=== PATIENT | male | born 1955 | race Caucasian/White ===

== ENCOUNTER 2018-07-26 09:57 | Observation (INO) ==
[2018-07-26] MEDS ORDERED: ONDANSETRON INJ 2 MG/ML 2 ML VIAL IV STA (10:04)
[2018-07-26] MEDS ORDERED: KETOROLAC TROMETHAMINE 15 MG/ML VIAL IV STA (10:04)
[2018-07-26] MEDS ORDERED: DEXAMETHASONE SOD INJ 4 MG/ML VIAL IV STA (10:04)
[2018-07-26] MEDS ORDERED: SODIUM CHLORIDE 0.9% 1000ML 1,000 ML IV SCH (10:15)
[2018-07-26] MEDS: MoRPHine SULFATE 4 MG/ML 1 ML CARP\\VIAL IV PRN ×2 (10:18→12:04)
[2018-07-26 10:37] LABS: Basophils # (auto) 0.01 K/uL (0-0.2); Basophils % (auto) 0.1 %; Eosinophils # (auto) 0.01 K/uL (0-0.5); Eosinophils % (auto) 0.1 %; Hemoglobin 14.6 g/dL (14.0-18.0); Immature Granulocytes # (auto) 0.01 K/uL (0.00-0.02); Immature Granulocytes % (auto) 0.1 %; Lymphocytes # (auto) 0.53 K/uL (1.2-3.4); Lymphocytes % (auto) 7.8 %; Mean Corpuscular Hgb Conc 34.8 g/dL (32-36); Mean Corpuscular Volume 94.8 fL (80-100); Mean Platelet Volume 10.3 fL (7.4-10.4); Monocytes # (auto) 0.24 K/uL (0.11-0.59); Monocytes % (auto) 3.5 %; Neutrophils # (auto) 5.98 K/uL (1.4-6.5); Neutrophils % (auto) 88.4 %; Platelet Count 226 K/uL (130-400); RDW Coefficient of Variation 12.6 % (11.5-14.5); RDW Standard Deviation 44.1 fL (36.4-46.3); Red Blood Count 4.43 M/uL (4.7-6.1); White Blood Count 6.78 K/uL (4.8-10.8)
[2018-07-26 10:56] LABS: Albumin Level 4.3 gm/dl (3.4-5.0); BUN Creatinine Ratio 21.9 (10-20); Est GFR (African American) 91.5; Potassium 3.9 mmol/L (3.5-5.1)
[2018-07-26 10:59] LABS: Albumin Globulin Ratio 1.2 (0.9-2); Bilirubin,Total 0.6 mg/dl (0.2-1); Globulin 3.5 gm/dl (2.5-4.0); Total Protein 7.8 gm/dl (6.4-8.2)
[2018-07-26 11:07] LABS: Appearance Urine Cloudy (Clear); Bacteria Urine Automated Negative (Negative); Bilirubin Urine Negative (Negative); Blood Urine Negative (Negative); Color Urine Yellow; Epithelial Cell Urine Auto 0-5 /lpf (0-5); Glucose Urine UA Negative (Negative); Ketones Urine 1+ (Negative); Leukocyte Esterase Urine Negative (Negative); Nitrite Urine Negative (Negative); Protein Urine Negative (Negative); RBC Urine Automated 0-4 /hpf (0-4); Specific Gravity Urine 1.022 (1.000-1.030); Urobilinogen Urine Negative (Negative); WBC Urine Automated 0 /hpf (0-5)
--- NOTE | 2018-07-26 12:06 | Emergency Department Note ---
Entered by Krupa Licea acting as a scribe for Lenny Vera DO History of Present Illness General Chief complaint: Back Injury/Pain Source: patient and EMS History of Present Illness Provider complaint: back pain Onset (ago): month(s) 2 Location: back Radiation: extremity (right leg) Quality: + other (pain) Associated symptoms: + denies other symptoms (denies abdominal pain); no chest pain, no nausea/vomiting and no weakness The patient is a 63 year old male who presents to the Emergency Room with complaints of back pain over the last 2 months. The patient states that Dr. Lowe ordered the MRI for him. The patient states that the pain down his right leg is new and states that this started last month. He denies having fevers, nausea, vomiting, chest pain, abdominal pain, and weakness. The patient states that rubbing his leg and walking helps to alleviate his pain. He states that he has been taking Tramadol and Prednisone which have been helping his leg. The patient denies other medical problems. He states that he had an MRI done last week and was scheduled to meet with Dr. Lowe today to go over it. Per EMS, the patient is having lower back pain that radiates into his right leg. Home Medications Home Medications Medication Instructions Recorded Confirmed Type albuterol sulfate [ProAir HFA] 2 puff INHALATION Q6H PRN 07/26/18 07/26/18 History methylprednisolone 4 mg PO DIRECTED 07/26/18 07/26/18 History tramadol 50 mg PO Q6 PRN 07/26/18 07/26/18 History Allergies Allergy/AdvReac Type Severity Reaction Status Date / Time No Known Allergies Allergy Verified 07/08/18 19:25 Past Med/Surg History Medical History Asthma (Chronic) Sciatica (Chronic) Surgical History Hx of tonsillectomy Family History Other No significant family history Social History Preferred Language: German Communication Ability: Effective Lead Miner Required: No Beliefs That Will Affect Care: None Current Living Situation: Spouse Other Information That Helps Us Care for You: No Feels Safe at Home: Yes Safety Concerns: Feels Safe At This Time Smoking Status: Never smoker Hx Alcohol Use: No Hx Substance Use: No Review of Systems See HPI for pertinent positives & negatives. and A total of 10 systems reviewed and were otherwise negative Physical Exam Vital Signs Vital Signs - 24 hr 07/26/18 10:05 07/26/18 10:37 07/26/18 10:47 Temperature 36.8 C Temperature Source Oral Sepsis Recent Fever Within 48 Hours No Sepsis Action Taken by Nursing No Action Required Pulse Rate 116 H Pulse Rate [Finger] Pulse Rate [Left] 95 H Pulse Rhythm [Finger] Pulse Rhythm [Left] Regular Pulse Strength [Finger] Pulse Strength [Left] Respiratory Rate 20 20 Respiratory Effort / Characteristics Non-Labored Respiratory Depth Normal Normal Respiratory Pattern Blood Pressure 168/113 H Blood Pressure [Left Arm] 134/94 Blood Pressure Mean 131 Blood Pressure Mean [Left Arm] 107 Blood Pressure Position [Left Arm] Pulse Oximetry 99 96 96 Oxygen Delivery Method Room Air Room Air Room Air 07/26/18 12:04 07/26/18 13:21 07/26/18 13:45 Temperature 36.7 C Temperature Source Oral Sepsis Recent Fever Within 48 Hours Sepsis Action Taken by Nursing Pulse Rate Pulse Rate [Finger] 91 H Pulse Rate [Left] 88 98 H Pulse Rhythm [Finger] Regular Pulse Rhythm [Left] Regular Regular Pulse Strength [Finger] Normal Pulse Strength [Left] Normal Normal Respiratory Rate 18 18 16 Respiratory Effort / Characteristics Non-Labored Spontaneous Non-Labored Spontaneous Non-Labored Spontaneous Respiratory Depth Normal Normal Normal Respiratory Pattern Regular Regular Blood Pressure Blood Pressure [Left Arm] 156/85 H 173/96 H 151/83 H Blood Pressure Mean Blood Pressure Mean [Left Arm] 108 121 105 Blood Pressure Position [Left Arm] Standing Standing Standing Pulse Oximetry 98 98 97 Oxygen Delivery Method Room Air Room Air Room Air 07/26/18 15:03 Temperature 36.4 C L Temperature Source Oral Sepsis Recent Fever Within 48 Hours Sepsis Action Taken by Nursing Pulse Rate Pulse Rate [Finger] 67 Pulse Rate [Left] Pulse Rhythm [Finger] Pulse Rhythm [Left] Pulse Strength [Finger] Pulse Strength [Left] Respiratory Rate 18 Respiratory Effort / Characteristics Respiratory Depth Respiratory Pattern Blood Pressure Blood Pressure [Left Arm] 151/86 H Blood Pressure Mean Blood Pressure Mean [Left Arm] 107 Blood Pressure Position [Left Arm] Standing Pulse Oximetry 94 Oxygen Delivery Method Room Air GENERAL: Patient is awake, alert .Patient is showing no signs of anxiety EYES: The conjunctivae are clear. The pupils are round and reactive. EARS, NOSE, MOUTH AND THROAT: The nose is without any evidence of any deformity. Mucous membranes are moist.Tongue is midline NECK: The neck is nontender and supple. RESPIRATORY: Normal respiratory effort is noted. There is no evidence of whe ezing rhonchi or rales to auscultation. CARDIOVASCULAR: Regular rate and rhythm noted. There no murmurs rubs or gallops normal S1 normal S2 GASTROINTESTINAL: The abdomen is soft. Bowel sounds are present in all quadrants. Abdomen is nontender. BACK: Low lumbar spine tenderness to palpation, right greater than left. MUSCULOSKELETAL/EXTREMITIES: There is no evidence of gross deformity. Full range of motion is noted in the hips and shoulders. SKIN: There is no obvious evidence of any rash. There are no petechiae, pallor or cyanosis noted. NEUROLOGIC: Patient is awake alert and oriented x3. Right patellar reflexes 1+, left is 2+. Achilles reflexes are 1+ and symmetric. Great toe raise is sym metric. Course 0957: The patient was evaluated in room C5, and a complete history and physical examination were performed. 1123: I discussed the patient's case with Dr. Lowe who said to admit the patient to Medicine. 1125: I updated the patient who verbalized agreement and understanding of the treatment plan. 1153: I discussed the patient's case with Patrizia Peters who will evaluate the patient for further management. Consultations Consultation #1: Dr. Lowe Time: 11:23 Consultation #2: Patrizia Peters Time: 11:53 Administered Medications Hydromorphone HCl (Dilaudid) 0.5 mg IV Q3H PRN PRN Reason: Pain Stop: 08/09/18 12:54 Last Admin: 07/26/18 16:26 Dose: 0.5 mg Documented by: [id number] Methylprednisolone 20 mg/ (Syringe) 0.32 mls @ 1.5 mls/min IV Q6 YESSI Stop: 08/25/18 17:29 Last Admin: 07/26/18 17:49 Dose: 1.5 mls/min Documented by: [id number] Lactated Ringer's (Lr) 1,000 mls @ 80 mls/hr IV .[id number] YESSI Stop: 08/25/18 17:14 Last Admin: 07/26/18 17:48 Dose: 80 mls/hr Documented by: [id number] Ketorolac Tromethamine (Toradol) 30 mg IV Q6 YESSI Stop: 07/31/18 16:59 Last Admin: 07/26/18 17:49 Dose: 30 mg Documented by: [id number] Morphine Sulfate (Morphine Sulfate) 4 mg IV Q15M PRN PRN Reason: Pain Stop: 08/09/18 10:03 Last Admin: 07/26/18 12:04 Dose: 4 mg Documented by: [id number] Admin: 07/26/18 10:18 Dose: 4 mg Documented by: [id number] Tramadol HCl (Ultram) 50 mg PO Q6H PRN PRN Reason: Pain Stop: 08/25/18 14:03 Last Admin: 07/26/18 17:08 Dose: 50 mg Documented by: [id number] Discontinued Medications Dexamethasone (Decadron) 10 mg IV NOW STA Stop: 07/26/18 10:05 Last Admin: 07/26/18 10:18 Dose: 10 mg Documented by: [id number] Sodium Chloride (Nss 1000ml) 1,000 mls @ 999 mls/hr IV .[id number] YESSI Stop: 07/26/18 11:15 Last Infusion: 07/26/18 11:20 Dose: 0 mls/hr Documented by: [id number] Admin: 07/26/18 10:19 Dose: 999 mls/hr Documented by: [id number] Ketorolac Tromethamine (Toradol) 15 mg IV NOW STA Stop: 07/26/18 10:05 Last Admin: 07/26/18 10:19 Dose: 15 mg Documented by: [id number] Ondansetron HCl (Zofran) 4 mg IV NOW STA Stop: 07/26/18 10:05 Last Admin: 07/26/18 10:18 Dose: 4 mg Documented by: [id number] Medical Decision Making Differential Diagnosis Differential diagnosis: Etiologies such as muscular strain, fracture, metastatic disease, disc herniation, sciatica, epidural abscess, vertebral osteomyelitis, discitis, spinal epidural hematoma, cord compression, cauda equina/conus medullaris syndrome, aortic disease, infection, shingles, renal colic, gastrointestinal, acute exacerbation of chronic back pain, as well as others were entertained. Medical Records Attestation: I reviewed the patient's medical records. Home Medications Current Medication List: was personally reviewed by me Laboratory Data Attestation: I reviewed the patient's lab results. Result diagrams: 07/26/18 10:22 07/26/18 10:22 Lab Results 07/26/18 07/26/18 07/26/18 Range/Units 10:22 10:22 10:24 WBC 6.78 (4.8-10.8) K/uL RBC 4.43 L (4.7-6.1) M/uL Hgb 14.6 (14.0-18.0) g/dL Hct 42.0 (42-52) % MCV 94.8 (80-100) fL MCH 33.0 (25-34) pg MCHC 34.8 (32-36) g/dL RDW Std Deviation 44.1 (36.4-46.3) fL RDW Coeff of [place] 12.6 (11.5-14.5) % Plt Count 226 (130-400) K/uL MPV 10.3 (7.4-10.4) fL Immature Gran % (Auto) 0.1 % Neut % (Auto) 88.4 % Lymph % (Auto) 7.8 % [place] % (Auto) 3.5 % Eos % (Auto) 0.1 % Baso % (Auto) 0.1 % Immature Gran # (Auto) 0.01 (0.00-0.02) K/uL Neut # (Auto) 5.98 (1.4-6.5) K/uL Lymph # (Auto) 0.53 L (1.2-3.4) K/uL [place] # (Auto) 0.24 (0.11-0.59) K/uL Eos # (Auto) 0.01 (0-0.5) K/uL Baso # (Auto) 0.01 (0-0.2) K/uL PT 11.1 (9.0-12.0) Seconds INR 1.1 (0.9-1.1) Sodium 137 (136-145) mmol/L Potassium 3.9 (3.5-5.1) mmol/L Chloride 104 (98-107) mmol/L Carbon Dioxide 24 (21-32) mmol/L Anion Gap 9.0 (3-11) BUN 22 H (7-18) mg/dl Creatinine 1.02 (0.6-1.4) mg/dl Est Cr Clr Drug Dosing 77.0 ml/min Est GFR ( Amer) 91.5 Est GFR (Non-Af Amer) 79.0 BUN/Creatinine Ratio 21.9 H (10-20) Glucose 132 H (70-99) mg/dl Calcium 9.0 (8.5-10.1) mg/dl Total Bilirubin 0.6 (0.2-1) mg/dl AST 21 (15-37) U/L ALT 37 (12-78) U/L Alkaline Phosphatase 62 (45-117) U/L Total Protein 7.8 (6.4-8.2) gm/dl Albumin 4.3 (3.4-5.0) gm/dl Globulin 3.5 (2.5-4.0) gm/dl Albumin/Globulin Ratio 1.2 (0.9-2) Lipase 103 (73-393) U/L Urine Color Urine Appearance (Clear) Urine pH (4.5-7.5) Ur Specific [place] (1.000-1.030) Urine Protein (Negative) Urine Glucose (UA) (Negative) Urine Ketones (Negative) Urine Blood (Negative) Urine Nitrite (Negative) Urine Bilirubin (Negative) Urine Urobilinogen (Negative) Ur Leukocyte Esterase (Negative) Urine WBC (Auto) (0-5) /hpf Urine RBC (Auto) (0-4) /hpf U Hyaline Cast (Auto) (0-5) /lpf U Epithel Cells (Auto) (0-5) /lpf Urine Bacteria (Auto) (Negative) 07/26/18 Range/Units 11:00 WBC (4.8-10.8) K/uL RBC (4.7-6.1) M/uL Hgb (14.0-18.0) g/dL Hct (42-52) % MCV (80-100) fL MCH (25-34) pg MCHC (32-36) g/dL RDW Std Deviation (36.4-46.3) fL RDW Coeff of [place] (11.5-14.5) % Plt Count (130-400) K/uL MPV (7.4-10.4) fL Immature Gran % (Auto) % Neut % (Auto) % Lymph % (Auto) % [place] % (Auto) % Eos % (Auto) % Baso % (Auto) % Immature Gran # (Auto) (0.00-0.02) K/uL Neut # (Auto) (1.4-6.5) K/uL Lymph # (Auto) (1.2-3.4) K/uL [place] # (Auto) (0.11-0.59) K/uL Eos # (Auto) (0-0.5) K/uL Baso # (Auto) (0-0.2) K/uL PT (9.0-12.0) Seconds INR (0.9-1.1) Sodium (136-145) mmol/L Potassium (3.5-5.1) mmol/L Chloride (98-107) mmol/L Carbon Dioxide (21-32) mmol/L Anion Gap (3-11) BUN (7-18) mg/dl Creatinine (0.6-1.4) mg/dl Est Cr Clr Drug Dosing ml/min Est GFR ( Amer) Est GFR (Non-Af Amer) BUN/Creatinine Ratio (10-20) Glucose (70-99) mg/dl Calcium (8.5-10.1) mg/dl Total Bilirubin (0.2-1) mg/dl AST (15-37) U/L ALT (12-78) U/L Alkaline Phosphatase (45-117) U/L Total Protein (6.4-8.2) gm/dl Albumin (3.4-5.0) gm/dl Globulin (2.5-4.0) gm/dl Albumin/Globulin Ratio (0.9-2) Lipase (73-393) U/L Urine Color Yellow Urine Appearance Cloudy H (Clear) Urine pH 7.0 (4.5-7.5) Ur Specific [place] 1.022 (1.000-1.030) Urine Protein Negative (Negative) Urine Glucose (UA) Negative (Negative) Urine Ketones 1+ H (Negative) Urine Blood Negative (Negative) Urine Nitrite Negative (Negative) Urine Bilirubin Negative (Negative) Urine Urobilinogen Negative (Negative) Ur Leukocyte Esterase Negative (Negative) Urine WBC (Auto) 0 (0-5) /hpf Urine RBC (Auto) 0-4 (0-4) /hpf U Hyaline Cast (Auto) 1-5 (0-5) /lpf U Epithel Cells (Auto) 0-5 (0-5) /lpf Urine Bacteria (Auto) Negative (Negative) Blood Pressure Blood Pressure Findings: Normal blood pressure MDM Narrative The patient is a 63-year-old male who presented to the emergency department for back pain. The patient has had ongoing back pain recently. He was seen by orthopedic surgery. The patient had an MRI recently. He was not aware of the MRI report and had an appointment with orthopedics today to go over his MRI as well as schedule further management. The patient's pain became very severe over the last 48 hours. He is having difficulty sitting. He has very significant pain which radiates to his right lower extremity. The patient has been having difficulty ambulating and to the point where he cannot ambulate without assistance. I reviewed the patient's MRI report with him. He does appear to have significant lumbar disc disease but also osteophyte changes which are likely causing the patient's radicular symptoms. I discussed his case with the on-call spinal surgeon. I also discussed his case with the on-call [facility] hospitalist group. They have agreed to evaluate the patient in the emergency department for further management and disposition. Also lumbar Impression & Plan Low back pain, Lumbar disc disease, Ambulatory dysfunction, Lumbar radiculopathy Discharge Plan Visit Data *Final* Discharge Date/Time: 07/26/18 13:09 Chief Complaint: Back Injury/Pain ED Provider: Lenny Vera Discharge Problem: Low back pain, Lumbar disc disease, Ambulatory dysfunction, Lumbar radiculopathy Patient Disposition: Admitted As Inpatient Discharge Instructions Interventions: ED Discharge Assessment Last Done: 07/26/18 13:09 Discharge Problem: Low back pain Qualifiers: Chronicity: unspecified Back pain laterality: unspecified Sciatica presence: unspecified whether sciatica present Qualified Code(s): M54.5 - Low back pain The scribe's documentation has been prepared under my direction and personally reviewed by me in its entirety. I confirm that the note above accurately reflects all work, treatment, procedures, and medical decision making performed by me.
--- NOTE | 2018-07-26 12:37 | History & Physical Report ---
Date of Service July 26, 2018 Assessment & Plan (1) Lumbar radiculopathy: Intractable lumbar back pain with radiculopathy Multilevel disc disease with protrusion as an MRI on 07/21/18 Involving right lower extremity Involvement seems to be L3/L4, L4/S1 distribution Dr. Iniguez has been consulted Pain controlled with intravenous Dilaudid Further management as per orthopedic surgeon Medically stable to have Surgery in contemplated (2) Low back pain: Secondary lumbar disc disease Management as above (3) Asthma: Remains controlled with use of inhalers No acute symptoms Continue Inhalers DVT prophylaxis Subcu heparin CODE STATUS Full History of Present Illness Chief Complaint: Lower back pain with radiation to right leg Primary Care Provider: Shin Haojune He is a 63-year-old male with significant past medical history of controlled asthma apparently has been complaining of back pain for the last few months. He has had multiple doses of steroid courses and has been taking tramadol for pain control. His pain is at the lower back pain gets worse with sitting and lying down. Pain gets a a little improved on walking around. He has been on third day for Medrol Dosepak and has had an MRI done on the of last month which showed: Broad-based bulging disc combined with posterior osteophyte complexes at all levels. Mild to moderate impact upon the anterior thecal sac. These findings are most prominent at L5-S1 and L3-L4 distribution. Moderate to significant bilateral narrowing of the neuroforamina at virtually all levels of the lumbar spine and scoliosis. He could not get out of the car to go to Dr. Lowe's office today for an appointment. He was advised to come to the ER instead. He does have significant back pain with radiculopathy to the right leg in the distribution of L3-L4, and L5-S1 distribution. He denies to be problem with urine and bowel habit. The ER physician did talk to Dr. Lowe as of advised for admission under medicine service. Allergies Allergy/AdvReac Type Severity Reaction Status Date / Time No Known Allergies Allergy Verified 07/08/18 19:25 Home Medications Home Medications Medication Instructions Recorded Confirmed Type albuterol sulfate [ProAir HFA] 2 puff INHALATION Q6H PRN 07/26/18 07/26/18 History methylprednisolone 4 mg PO DIRECTED 07/26/18 07/26/18 History tramadol 50 mg PO Q6 PRN 07/26/18 07/26/18 History Past Med/Surg History Medical History Asthma (Chronic) Sciatica (Chronic) Surgical History Hx of tonsillectomy Family History Other No significant family history Social History Preferred Language: Chinese Communication Ability: Effective Radiocommunications Technician Required: No Beliefs That Will Affect Care: None Current Living Situation: Spouse Other Information That Helps Us Care for You: No Feels Safe at Home: Yes Safety Concerns: Feels Safe At This Time Smoking Status: Never smoker Hx Alcohol Use: No Hx Substance Use: No Review of Systems All systems reviewed & are unremarkable except as noted in HPI & below Physical Exam Vital Signs (Past 24 Hours): Last Vital Signs Temp 36.8 C 07/26/18 10:05 Pulse 88 07/26/18 12:04 Resp 18 07/26/18 12:04 BP 156/85 H 07/26/18 12:04 Pulse Ox 98 07/26/18 12:04 Physical Exam: Cannot sit or lie flat due to pain in the back and radiation of pain to the right leg Constitutional: + acute distress (With pain) Eyes: PERRL, conjunctivae normal, anicteric sclerae ENMT: external ear and nose normal, oropharynx normal Neck: trachea midline, no thyromegaly Respiratory: normal respiratory effort, lungs clear to auscultation Cardiovascular: RRR, no murmur, no edema Gastrointestinal (Abdomen): Inspection/Auscultation: abdomen normal to inspection and normal bowel sounds Musculoskeletal: Spine: + lumbar spinal tenderness (Lower lumbar spine) Patient cannot sit and lie down to have the full neuro examination due to extreme pain. Skin: no rashes, warm and dry Neurologic: Motor/Sensory: + sensory deficit (Sensory deficit involving right medial leg and thigh) Psychiatric: A+Ox3, euthymic affect Results & Data Laboratory Results Short CBC 07/26/18 Range/Units 10:22 WBC 6.78 (4.8-10.8) K/uL Hgb 14.6 (14.0-18.0) g/dL Hct 42.0 (42-52) % Plt Count 226 (130-400) K/uL BMP 07/26/18 10:22 Sodium 137 Potassium 3.9 Chloride 104 Carbon Dioxide 24 BUN 22 H Creatinine 1.02 Glucose 132 H Calcium 9.0 Liver Function 07/26/18 Range/Units 10:22 Total Bilirubin 0.6 (0.2-1) mg/dl AST 21 (15-37) U/L ALT 37 (12-78) U/L Alkaline Phosphatase 62 (45-117) U/L Albumin 4.3 (3.4-5.0) gm/dl Urine 07/26/18 Range/Units 11:00 Urine Color Yellow Urine Appearance Cloudy H (Clear) Urine pH 7.0 (4.5-7.5) Ur Specific [place] 1.022 (1.000-1.030) Urine Protein Negative (Negative) Urine Glucose (UA) Negative (Negative) Diagnostic Findings MRI of Lumbar spine:1. Considerable degenerative disc change at all levels. 2. Broad-based bulging disc combined with posterior osteophytic complexes at all levels. Mild to moderate impact upon the anterior thecal sac. 3. These findings are most prominent at L5-S1 and L3-L4. 4. Moderate to significant bilateral narrowing of the neural foramina at virtually all levels of the lumbar spine as discussed. 5. Scoliosis. Medications Administered Current Inpatient Medications Heparin Sodium (Porcine) (Heparin Sodium (Porcine)) 5,000 units SQ Q8 YESSI Stop: 08/25/18 13:59 Morphine Sulfate (Morphine Sulfate) 4 mg IV Q15M PRN PRN Reason: Pain Stop: 08/09/18 10:03 Last Admin: 07/26/18 12:04 Dose: 4 mg Documented by: (1) Low back pain Back pain laterality: unspecified Chronicity: unspecified Sciatica presence: unspecified whether sciatica present Qualified Code(s): M54.5 - Low back pain
--- NOTE | 2018-07-26 13:17 | XRay Report ---
TWO VIEW CHEST CLINICAL HISTORY: Preoperative examination. FINDINGS: PA and lateral chest radiographs are compared to study dated 11/21/2016 and correlated with chest CT dated 02/24/2017. The heart is enlarged and there is atherosclerotic calcification of the tho racic aorta. The pulmonary vasculature is noncongested. There is mild bibasilar scarring/atelectasis. No airspace consolidation or pleural effusion is identified. There is no pneumothorax. The bony thor ax appears intact. IMPRESSION: Cardiac enlargement with no active disease in the chest. Electronically signed by: Jose Sweet M.D. 07/26/2018 1:16 PM
[2018-07-26] MEDS ORDERED: ALBUTEROL HFA 8 GM INHALER INH PRN (14:15)
[2018-07-26 14:23] LABS: INR 1.1 (0.9-1.1); Prothrombin Time 11.1 Seconds (9.0-12.0)
[2018-07-26] MEDS: HYDROmorphone INJ 0.5 MG/0.5 ML SYR IV PRN ×2 (16:26→22:05)
[2018-07-26] MEDS: TRAMADOL HCL 50 MG TABLET PO PRN (17:08)
[2018-07-26] MEDS: LACTATED RINGER'S 1,000 ML IV SCH (17:48)
[2018-07-26] MEDS: KETOROLAC 30 MG/ML VIAL IV SCH ×2 (17:49→23:30)
[2018-07-26] MEDS: methylPREDNISolone 20 MG in SYRINGE 0 ML IV SCH ×2 (17:49→23:30)
--- NOTE | 2018-07-26 17:51 | Consultation Report ---
DATE OF CONSULTATION: 07/26/2018 CHIEF COMPLAINT: Lumbar radicular pain and inability to function, inability to stand or sit. HISTORY OF PRESENT ILLNESS: Neftaly is pleasant. He is 63. He is miserable, has been for several days now. Barely got through the weekend. Had an urgent MRI scan. Could not get to the office this morning. He does have a significant problem of his hands with stenosis, instability and idiopathic scoliosis on top of degenerative scoliosis of the spine and spinal stenosis. PAST MEDICAL HISTORY: Listed including asthma. ALLERGIES: Negative. MEDICATIONS: Albuterol, methylprednisolone, tramadol. MEDICAL HISTORY: Asthma and sciatica. SURGICAL HISTORY: Tonsillectomy. REVIEW OF SYSTEMS: Denies any fevers, sweats, chills, no bowel and bladder issues. Denies blurred vision, double vision, tinnitus or vertigo. Denies any shortness of breath. Denies nausea, vomiting, no bowel and bladder incontinence. He admits to back and lower extremity, difficulty. He cannot sit and he cannot lie. We cannot do a full examination. OBJECTIVE: GENERAL: He is alert, oriented. He is feet 5' 7". He is 200 pounds. VITAL SIGNS: Blood pressure 156/85, respirations 18, pulse 88. HEENT: Pupils react to light and accommodation. Ear, nose and throat clear. LUNGS: Clear to auscultation. ABDOMEN: Soft, nontender, no referred pain. MUSCULOSKELETAL: He has pain with flexion, extension, pain with percussion, static with dorsiflexion, plantar flexion. Again, a full neuro examination could not be completed because of the gentleman's pain. Images reviewed demonstrate degenerative changes at all levels of the lumbar spine and even up into T11-T12 area. He has a bulging disc and osteophyte formation. He has impact on the thecal sac. He has findings most prominent at L4, L5 and S1; significant narrowing at all levels. IMPRESSION: Multifactorial lumbar spinal stenosis and nerve root irritation scoliosis and stenosis. PLAN: Right now will try to calm him down with some pain management techniques. His surgery will be fairly elaborate in my hands and probably anybody else's hands for looking at a 4-5 hour operation. It will not happen this week. I have a completely busy schedule and I will not be able to squeeze him and in this case we do not just squeeze him in the operative schedule as takes a lot of planning, evaluation and treatment and preop evaluation. Once again, we will try to control his pain with medication, place him on Solu-Medrol along with Toradol along with pain management and hopefully get some resolution; this will be difficult.
[2018-07-26] MEDS ORDERED: TRAMADOL HCL 50 MG TABLET PO SCH (18:00)
[2018-07-26] MEDS: HEPARIN SOD 5,000 UNIT/0.5 ML VIAL SQ SCH (21:40)
[2018-07-27] MEDS: methylPREDNISolone 20 MG in SYRINGE 0 ML IV SCH ×4 (05:47→23:45)
[2018-07-27] MEDS: HEPARIN SOD 5,000 UNIT/0.5 ML VIAL SQ SCH ×3 (05:47→21:22)
[2018-07-27] MEDS: LACTATED RINGER'S 1,000 ML IV SCH ×2 (05:47→18:05)
[2018-07-27] MEDS: KETOROLAC 30 MG/ML VIAL IV SCH ×4 (05:47→23:45)
--- NOTE | 2018-07-27 09:36 | Pain Management Consultation ---
Date of Consultation July 27, 2018 Assessment & Plan (1) Lumbar radiculopathy: Continue Tramadol, Dilaudid, Dexamethasone, and Toradol. Patient is reporting mild improvement. Per patient, Dr. Lowe is planning for surgery sometime next week. Patient is not a candidate for interventional procedures at this time as there is a consideration of surgery next week. May consider initiating Gabapentin for increased relief. History of Present Illness Reason for Consultation: Intractable low back pain Attending Physician: Bam Nicholas DO History of Present Illness Mr. Esqueda is a 63-year-old white male that has been seen in consultation for intractable low back pain. Patient states that the back pain has been ongoing for approximately 3 months. He denies any known injury. The pain is located along the lumbar region and radiates along the anterior leg to the ankle. Pain is aggravated with sitting and lying supine, decreased with walking and making positional changes. He does report significant limitations of performing his daily activities due to the pain. Pain is rated 2/10 at its best and 8/10 at its worst. Patient has seen Dr. Lowe approximately 2 weeks ago for initial consultation for the back pain. He has again placed on oral steroids and given a prescription for tramadol. Patient states that the oral steroids to do provide mild relief for short amount of time. The tramadol does provide mild pain relief. He was scheduled to see Dr. Lowe in his office yesterday but was unable to get out of his car because of the significant worsening of pain. Per patient, Dr. Lowe did see the patient earlier today and did mention performing surgery sometime next week. Patient is currently receiving IV Toradol, dexamethasone, Dilaudid, and p.o. tramadol with adequate pain relief. Patient denies any bowel/bladder incontinence, saddle anesthesia, leg weakness, foot drop, falls. Case discussed with Dr. Tawana Rice Pain Assessment Full Body Front + Back: 1. 2. 3. [facility] Combined Pain Scale: 4-Mild to Mod - Interrupts ADLs. Decrease in job performance Allergies Allergy/AdvReac Type Severity Reaction Status Date / Time No Known Allergies Allergy Verified 07/08/18 19:25 Home Medications Home Medications Medication Instructions Recorded Confirmed Type albuterol sulfate [ProAir HFA] 2 puff INHALATION Q6H PRN 07/26/18 07/26/18 History methylprednisolone 4 mg PO DIRECTED 07/26/18 07/26/18 History tramadol 50 mg PO Q6 PRN 07/26/18 07/26/18 History Patient History Medical History Lumbar radiculopathy (Acute) Asthma (Chronic) Sciatica (Chronic) Surgical History Hx of tonsillectomy (Chronic) Family History Other No significant family history Social History Preferred Language: Burkinan Communication Ability: Effective 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 Beliefs That Will Affect Care: None Current Living Situation: Spouse Other Information That Helps Us Care for You: No Feels Safe at Home: Yes Safety Concerns: Feels Safe At This Time Smoking Status: Never smoker Hx Alcohol Use: No Hx Substance Use: No Review of Systems Constitutional: no fever, no chills, no sweats, no body aches and no weakness Eyes: no eye pain and no photophobia Ear, Nose, Mouth, Throat: no ear pain, no nasal congestion, no facial pain, no sinus pain/pressure, no mouth lesions, no dental abscess, no sore throat and no dysphagia Respiratory: no cough, no chest congestion and no wheezing Cardiovascular: no chest pain, no radiating jaw, neck or arm pain, no palpitations and no lightheadedness Gastrointestinal: no abdominal pain, no nausea, no vomiting, no constipation and no diarrhea/loose stools Integumentary: no rash, no lesions, no skin ulcer and no sores Neurologic: no localized weakness, no generalized weakness, no loss of sensation, no lack of coordination, no confusion and no memory loss Psychiatric: no behavioral changes, no confusion and no hallucinations Physical Exam Vital Signs (Past 24 Hours): Last Vital Signs Temp 37.0 C 07/27/18 07:55 Pulse 77 07/27/18 07:55 Resp 15 07/27/18 07:55 BP 133/82 07/27/18 07:55 Pulse Ox 97 07/27/18 07:55 Physical Exam: GENERAL: 63 year old white male. Speech and cognition is intact. Mood and affect is appropriate. Does not appear in acute distress. He is standing next to the hospital bed (he states that sitting worsens the pain) BACK: Normal lumbar lordosis. Full ROM in all planes. There is tenderness from L3-S1 to palpation. No SI joint tenderness. No paravertebral, quadratus lumborum, gluteal, piriformis muscle spasm or myoneural trigger point noted. LOWER EXTREMITIES: Straight leg raise on the right, negative on the left. R Hip flexion +5; hip extension +5; knee extension +5; knee flexion +5; dorsiflexion +5; plantar flexion +5 L Hip flexion +5; hip extension +5; knee extension +5; knee flexion +5; dorsiflexion +5; plantar flexion +5 Negative Candi maneuver bilaterally. NEURO: Normal gait. Awake, alert, and oriented x 3. Results & Data Diagnostic Findings MR lumbar spine wo con HISTORY: Spinal stenosis. Pain. Neuropathy. SPINAL STENOSIS TECHNIQUE: Multiplanar multisequence MRI of the lumbar spine was performed without the use of contrast. COMPARISON: None. FINDINGS: For the purpose of the report the L5-S1 disc space will be located on axial image 27 of 30. Signal characteristics demonstrate moderate in homogeneity of bone marrow signal. This is considered age-related. No evidence for pathologic bone marrow replacement area in scoliosis of the lumbar spine. No evidence for compression deformity. Considerable degenerative disc changes throughout. L1-L2: Broad-based left lateral bulging disc. Moderate narrowing of the left neural foramina. Minimal impact left anterior thecal sac. Moderate degenerative change posterior elements. L2-L3: Mild broad-based bulging disc combined with posterior osteophytic change. Mild impact anterior aspect thecal sac. Mild narrowing of the neuroforamina left and to lesser extent right. L3-L4: Mild broad-based disc herniation. Moderate impact anterior aspect of the thecal sac. Moderate to rather significant narrowing of the right and to lesser extent left neuroforamina. Considerable degenerative change posterior elements. L4-L5: Broad-based bulging disc. Mild impact anterior thecal sac. Moderate narrowing right and to lesser extent left neuroforamina. Considerable degenerative change right to lesser extent left posterior facets. L5-S1: Broad-based left central disc herniation. Moderate impact upon the left central aspect of the anterior thecal sac. Moderate narrowing of the neuroforamina bilaterally. Considerable degenerative change posterior elements. IMPRESSION: 1. Considerable degenerative disc change at all levels. 2. Broad-based bulging disc combined with posterior osteophytic complexes at all levels. Mild to moderate impact upon the anterior thecal sac. 3. These findings are most prominent at L5-S1 and L3-L4. 4. Moderate to significant bilateral narrowing of the neural foramina at virtually all levels of the lumbar spine as discussed. 5. Scoliosis. The above report was generated using voice recognition software. It may contain grammatical, syntax or spelling errors. Electronically signed by: Alan Hunt M.D. 07/21/2018 2:42 PM
--- NOTE | 2018-07-27 10:36 | Progress Note ---
DATE: 07/27/2018 SUBJECTIVE: He is making improvement. Better motion, decreased pain a little more functional, was able to lie down. OBJECTIVE: Vital signs stable. Pulse regular. Blood pressure controlled. Neurologically controlled. Admission diagnosis of severe sciatica, severe scoliosis, nerve root entrapment also history of asthma. PLAN: We plan to get pain management involved today. Medication on board. I anticipate will be able to get Mr. Esqueda home tomorrow, which would be the 07/28/2018. He will need improved stable condition. He needs to be home. He needs to be off work. He needs to be resting. He will need a followup appointment with Dr. Lowe, which is I and scheduling surgery. I explained to Neftaly if he does come to surgical intervention, it is probably to be at 3-4-hour surgical procedure with some correction of a scoliotic curvature, a fairly significant operation. As possible, we can avoid surgery altogether and we are getting pain management involved.
--- NOTE | 2018-07-27 14:31 | Hospitalist Progress Note ---
Date of Service July 27, 2018 Assessment & Plan (1) Lumbar radiculopathy: Intractable lumbar back pain with radiculopathy Multilevel disc disease with protrusion as an MRI on 07/21/18 Involving right lower extremity Involvement seems to be L3/L4, L4/S1 distribution Dr. Iniguez note reviewed Pain controlled with intravenous Dilaudid Medically stable to have Surgery in contemplated (2) Low back pain: Secondary lumbar disc disease Management as above (3) Asthma: Remains controlled with use of inhalers No acute symptoms Continue Inhalers DVT prophylaxis Subcu heparin CODE STATUS Full Subjective ROS-No Headache, No Visual Changes, No Nausea, No Vomiting, No Fever, No Chills, No Neck Pain or Stiffness, No Chest Pain, No Palpitations, No SOB, No LAWS, No Cough, No Sputum, No Wheezing, No Abdominal Pain, No Diarrhea, No Hematemesis, No Hemoptysis, No Unexpected Weight Loss, No Flank pain, No Melena, No Hematochezia, No Frequency, No Urgency, No Burning, No Hematuria, No Rashes, No Diaphoresis. Appetite is Normal, complains of severe back pain, was feeling okay until he bent down to put his underwear on after a shower. Physical Exam Gen-AAO x 3, moderate pain, Afebrile, bent over Head-NCAT, EOMI, PERRLA, Anicteric Sclera, No Posterior Pharyngeal Erythema Neck-Supple, No JVD, No Thyromegaly, No Masses, No LAD, No Bruits Lungs-Clear to Auscultation Bilaterally, No Rales, No Rhonchi, No Wheezing, No Crepitus Chest-No S4, +S1, +S2, No S3, No Murmurs, No Rubs, No Gallops, No Ectopy Abdomen-Soft, Bowel Sounds Present, Non Tender, Non Distended, No Hepatomegaly, No Splenomegaly, No Palpable Masses, No Rebound, No Rigidity, No Guarding Musculoskeletal-Full Range of Motion Bilaterally, No CVAT Extremities-No Cyanosis, No Clubbing, No Edema Nuero-Cranial Nerves II-XII grossly intact, Motor WNL, DTRs WNL, Strength WNL, Non Focal Psych-Normal Mood Physical Exam Vital Signs (Past 24 Hours): Last Vital Signs Temp 37.0 C 07/27/18 07:55 Pulse 77 07/27/18 07:55 Resp 15 07/27/18 07:55 BP 133/82 07/27/18 07:55 Pulse Ox 97 07/27/18 07:55 Results & Data Laboratory Results Current Diagnoses Unspecified asthma, uncomplicated (07/26/18) Radiculopathy, lumbar region (07/26/18) Low back pain (07/26/18) Allergies No Known Allergies Allergy (Verified 07/08/18 19:25) Height/Weight/Isolation Height 5 ft 7 in Weight 89 kg Chemistry 07/26/18 10:22 Sodium 137 Potassium 3.9 Chloride 104 Carbon Dioxide 24 Anion Gap 9.0 BUN 22 H Creatinine 1.02 Glucose 132 H Urinalysis 07/26/18 11:00 Urine Color Yellow Urine Appearance Cloudy H Urine pH 7.0 Ur Specific [place] 1.022 Urine Protein Negative Urine Glucose (UA) Negative Urine Ketones 1+ H Urine Blood Negative Urine Nitrite Negative Urine Bilirubin Negative (1) Low back pain Back pain laterality: unspecified Chronicity: unspecified Sciatica presence: unspecified whether sciatica present Qualified Code(s): M54.5 - Low back pain
[2018-07-27] MEDS: TRAMADOL HCL 50 MG TABLET PO PRN (15:20)
[2018-07-27] MEDS: HYDROmorphone INJ 0.5 MG/0.5 ML SYR IV PRN (20:12)
[2018-07-28] MEDS: KETOROLAC 30 MG/ML VIAL IV SCH ×2 (05:58→12:06)
[2018-07-28] MEDS: HEPARIN SOD 5,000 UNIT/0.5 ML VIAL SQ SCH (05:58)
[2018-07-28] MEDS: methylPREDNISolone 20 MG in SYRINGE 0 ML IV SCH ×2 (05:58→12:06)
--- NOTE | 2018-07-28 09:51 | Discharge Summary ---
Date of Service July 28, 2018 Admission HPI Per Admitting Provider He is a 63-year-old male with significant past medical history of controlled asthma apparently has been complaining of back pain for the last few months. He has had multiple doses of steroid courses and has been taking tramadol for pain control. His pain is at the lower back pain gets worse with sitting and lying down. Pain gets a a little improved on walking around. He has been on third day for Medrol Dosepak and has had an MRI done on the of last month which showed: Broad-based bulging disc combined with posterior osteophyte complexes at all levels. Mild to moderate impact upon the anterior thecal sac. These findings are most prominent at L5-S1 and L3-L4 distribution. Moderate to significant bilateral narrowing of the neuroforamina at virtually all levels of the lumbar spine and scoliosis. He could not get out of the car to go to Dr. Lowe's office today for an appointment. He was advised to come to the ER instead. He does have significant back pain with radiculopathy to the right leg in the distribution of L3-L4, and L5-S1 distribution. He denies to be problem with urine and bowel habit. The ER physician did talk to Dr. Lowe as of advised for admission under medicine service. Admission Exam Per Admitting Provider Temp 36.8 C 07/26/18 10:05 Pulse 88 07/26/18 12:04 Resp 18 07/26/18 12:04 BP 156/85 H 07/26/18 12:04 Pulse Ox 98 07/26/18 12:04 Physical Exam:Cannot sit or lie flat due to pain in the back and radiation of pain to the right leg Constitutional:+acute distress (With pain) Eyes: PERRL, conjunctivae normal, anicteric sclerae ENMT:external ear and nose normal, oropharynx normal Neck: trachea midline, no thyromegaly Respiratory:normal respiratory effort, lungs clear to auscultation Cardiovascular: RRR, no murmur, no edema Gastrointestinal (Abdomen): Inspection/Auscultation: abdomen normal to inspection and normal bowel sounds Musculoskeletal: Spine: + lumbar spinal tenderness (Lower lumbar spine) Patient cannot sit and lie down to have the full neuro examination due to extreme pain. Skin:no rashes, warm and dry Neurologic:Motor/Sensory: + sensory deficit (Sensory deficit involving right medial leg and thigh) Psychiatric:A+Ox3, euthymic affect Principal Diagnosis Lumar DDD c Radiculopathy Obesity c BMI of 31 LBP Chronic Asthma Discharge Exam ROS-No Headache, No Visual Changes, No Nausea, No Vomiting, No Fever, No Chills, No Neck Pain or Stiffness, No Chest Pain, No Palpitations, No SOB, No LAWS, No Cough, No Sputum, No Wheezing, No Abdominal Pain, No Diarrhea, No Hematemesis, No Hemoptysis, No Unexpected Weight Loss, No Flank pain, No Melena, No Hematochezia, No Frequency, No Urgency, No Burning, No Hematuria, No Rashes, No Diaphoresis. Appetite is Normal, +LBP and RLE Radic Physical Exam Gen-AAO x 3, NAD, Afebrile, Standing for comfort Head-NCAT, EOMI, PERRLA, Anicteric Sclera, No Posterior Pharyngeal Erythema Neck-Supple, No JVD, No Thyromegaly, No Masses, No LAD, No Bruits Lungs-Clear to Auscultation Bilaterally, No Rales, No Rhonchi, No Wheezing, No Crepitus Chest-No S4, +S1, +S2, No S3, No Murmurs, No Rubs, No Gallops, No Ectopy Abdomen-Soft, Bowel Sounds Present, Non Tender, Non Distended, No Hepatomegaly, No Splenomegaly, No Palpable Masses, No Rebound, No Rigidity, No Guarding Musculoskeletal-Full Range of Motion Bilaterally c Pain, No CVAT Extremities-No Cyanosis, No Clubbing, No Edema Nuero-Cranial Nerves II-XII grossly intact, Motor WNL, DTRs Dec RLE, Dec Strength RLE Psych-Normal Mood Discharge Data Allergies Allergy/AdvReac Type Severity Reaction Status Date / Time No Known Allergies Allergy Verified 07/08/18 19:25 Consultations 07/26/18 11:54 ED Decision to Admit Stat 07/26/18 11:56 Consult Orthopedic Surgery Stat 07/26/18 16:57 Consult Pain Management Routine Current Diagnoses Unspecified asthma, uncomplicated (07/26/18) Radiculopathy, lumbar region (07/26/18) Low back pain (07/26/18) Allergies No Known Allergies Allergy (Verified 07/08/18 19:25) Height/Weight/Isolation Height 5 ft 7 in Weight 89 kg Chemistry 07/26/18 10:22 Sodium 137 Potassium 3.9 Chloride 104 Carbon Dioxide 24 Anion Gap 9.0 BUN 22 H Creatinine 1.02 Glucose 132 H Urinalysis 07/26/18 11:00 Urine Color Yellow Urine Appearance Cloudy H Urine pH 7.0 Ur Specific [place] 1.022 Urine Protein Negative Urine Glucose (UA) Negative Urine Ketones 1+ H Urine Blood Negative Urine Nitrite Negative Urine Bilirubin Negative Hospital Course (1) Lumbar radiculopathy: Intractable lumbar back pain with radiculopathy Multilevel disc disease with protrusion as an MRI on 07/21/18 Involving right lower extremity Involvement seems to be L3/L4, L4/S1 distribution Dr. Iniguez note reviewed Pain controlled with intravenous Dilaudid Medically stable to have Surgery in contemplated DC and f/u c Ortho next for elective surgery (2) Low back pain: Secondary lumbar disc disease Management as above (3) Asthma: Remains controlled with use of inhalers No acute symptoms Continue Inhalers DC Home Today CODE STATUS Full Total Time Total Time Spent Total Time Spent (In Minutes): 45 mins Total Time Includes: Examination of the Patient, Discharge Planning, Medication Reconciliation and Communication With Other Providers Discharge Plan Discharge Items Patient Disposition: Home - Self-Care Reason For Visit: BACK PAIN WITH RADICULOPATHY Discharge Diagnosis: Lumar DDD c Radiculopathy Obesity c BMI of 31 LBP Chronic Asthma Condition: Good Discharge Goals: Decrease discomfort and Improve function Activity Comment: Rest Lifting: None Bathing: No limitations Sexual Activity: Wait until after follow-up appointment Exercise/Sports: None Driving/Machine Use: No limitations Weightbearing: Left weightbearing and Right weightbearing Non-emergency contact: Primary Care Provider and Surgeon Call non-emergency contact if: you have any medication questions, your symptoms worsen, your pain is not controlled and your pain is unusual for you Follow-up/Referrals: Shin Vallejo [Primary Care Provider] - (Follow up as needed) Shaehed Lowe DO [Family Provider] - (next week as directed) Diet: Regular Addtl Provider Instructions: Monitor Pain Prescriptions: New meloxicam 15 mg tablet 15 mg PO DAILY Qty: 10 RF: 0 oxycodone 5 mg tablet 5 mg PO TID PRN (Reason: pain) Qty: 30 RF: 0 acetaminophen [Tylenol Extra Strength] 500 mg tablet 500 mg PO Q4H Qty: 90 RF: 0 Continued tramadol 50 mg tablet 50 mg PO Q6 PRN (Reason: Pain) RF: 0 methylprednisolone 4 mg tablets,dose pack 4 mg PO DIRECTED RF: 0 albuterol sulfate [ProAir HFA] 90 mcg/actuation Hfa Aerosol Inhaler 2 puff INHALATION Q6H PRN (Reason: Wheezing) RF: 0 Stand-Alone Forms: [facility], Opioid Pain Management Discharge Orders: Discharge Order (Routine); Ordered 07/28/18 Ordered By: Bam Nicholas Admission Data Admit Date/Time: 07/26/18 12:43 Attending Provider: Bam Nicholas Admit Provider: Rosie Joel Primary Care Provider: Shin Vallejo Other Providers: Rosie Joel ; Shaheed Lowe Jennifer L Service: Medical
[2018-07-28] MEDS: TRAMADOL HCL 50 MG TABLET PO PRN (10:01)
== END 2018-07-28 13:05 | disposition home or self-care (01) ==
LOC: 3N 09:57 → ED 09:57 → SUATTDRO 12:43 → 3N 13:09